=== PATIENT | female | born 1925 | race Caucasian/White ===

== ENCOUNTER 2016-06-04 18:14 | Outpatient (RCR) | payer MEDICARE ==
[2016-06-04 16:09] LABS: MEAN CORPUSCULAR VOLUME 80 FL (80-100); MEAN PLATELET VOLUME 9.2 FL (6.0-9.5); WHITE BLOOD COUNT 9.73 10^3uL (4.0-11.0)
[2016-06-04 16:15] LABS: ALBUMIN 3.4 g/dL (3.4-5.0); ANION GAP 17.1 MEQ/L (3-15); CALCULATED IONIZED CALCIUM 3.9 mg/dL (3.8-4.6); TOTAL PROTEIN 6.9 g/dL (6.4-8.5)
[2016-06-04 16:57] LABS: BAND NEUTROPHILS % 3 % (0-6); EOSINOPHILS % 0 % (0-4); LYMPHOCYTES # 0.8 #; MEAN CORPUSCULAR HEMOGLOBIN 22.4 PG (26.0-34.0); MEAN CORPUSCULAR HGB CONC 28.1 g/dL (31.0-37.0); MONOCYTES # 0.2 #; MONOCYTES % 2 % (3-11); SEGMENTED NEUTROPHILS % 87 % (51-67); TOTAL CELLS COUNTED 100
[2016-06-04 16:58] LABS: ANISOCYTOSIS MODERATE; HYPOCHROMASIA MARKED; MICROCYTOSIS MODERATE; POIKILOCYTOSIS SLIGHT; RBC MORPH SEE REFERENCE (NORMAL)
[2016-06-04 16:59] LABS: PLATELET COUNT 650 10^3uL (150-450)
[~2016-06-04 18:14] MED LIST: AMLO10TA82 PO; ASCO500T5 PO; ASPI-586 PO; ASPI325T4 PO; ATOR20TA PO; ATOR80TA PO; CHOL10002 PO; CITA10TA4 PO; DIGO250T6 PO; DONE5TAB4 PO; FERR325C PO; FOSI10TA3 PO; FSNP20T PO; GLIM4TAB PO; GLMP4T PO; LSNP10T PO; METF500T4 PO; WARF4TAB PO; WRF2T PO
[2016-06-05] VITALS (15 sets, daily range): BP systolic 115–135; BP diastolic 49–78
[2016-06-05] MEDS ORDERED: SODIUM CHLORIDE 250 ML IV PRN (10:45)
[2016-06-05] MEDS ORDERED: NS FLUSH 3 ML PRN IV (10:45)
[2016-06-05] MEDS ORDERED: NS FLUSH 10 ML PRN IV (10:45)
[2016-06-13] MEDS ORDERED: LIDOCAINE 1% (XYLOCAINE) 20 ML VIAL ONE (10:54)
== END 2016-09-02 | disposition home or self-care (01) ==
LOC: EUOP 18:14
PROVIDERS: ATTEND Family Medicine
DX: D50.8 Other iron deficiency anemias (principal); R79.89 Other specified abnormal findings of blood chemistry; E11.65 Type 2 diabetes mellitus with hyperglycemia; E03.5 Myxedema coma
CPT/HCPCS: 36415; 36430; 80053; 83036; 84436; 84443; 85025; 86850; 86870; 86900; 86901; 86920; 86922; J7050; P9040; 86921

== ENCOUNTER → 2016-07-31 | Outpatient (REF) | payer MEDICARE ==
[2016-07-31 11:21] LABS: MEAN PLATELET VOLUME 9.2 FL (6.0-9.5); PLATELET COUNT 547 10^3uL (150-450)
[2016-07-31 11:28] LABS: ANION GAP 14.6 MEQ/L (3-15)
[2016-07-31 11:30] LABS: MEAN CORPUSCULAR HEMOGLOBIN 22.8 PG (26.0-34.0); MEAN CORPUSCULAR HGB CONC 29.4 g/dL (31.0-37.0); MEAN CORPUSCULAR VOLUME 78 FL (80-100)
[2016-07-31 11:33] LABS: BAND NEUTROPHILS % 1 % (0-6); EOSINOPHILS % 1 % (0-4); LYMPHOCYTES # 0.4 #; MONOCYTES # 0.4 #; MONOCYTES % 4 % (3-11); SEGMENTED NEUTROPHILS % 90 % (51-67); TOTAL CELLS COUNTED 100
[2016-07-31 11:34] LABS: HYPOCHROMASIA SLIGHT; MICROCYTOSIS SLIGHT; RBC MORPH SEE REFERENCE (NORMAL)
== END ==
LOC: LAB 11:02
PROVIDERS: ATTEND Family Medicine
DX: D50.8 Other iron deficiency anemias (principal); R79.89 Other specified abnormal findings of blood chemistry
CPT/HCPCS: 80048; 85025

== ENCOUNTER 2016-08-01 11:27 | Outpatient (RCR) | payer MEDICARE ==
[~2016-08-01] VITALS: Ht 167.6 cm; Wt 61.4 kg
[2016-08-01] MEDS ORDERED: NS 250 ML (IVPB) BAG IV SCH (12:20)
[2016-08-01] MEDS ORDERED: SODIUM CHLORIDE FLUSH 10 ML SYR IV PRN (12:20)
[2016-08-01] MEDS ORDERED: LMX 4 KIT (LIDOCAINE 4% 5 GM TUBE/TRANSPARENT DRESSING) TOP PRN (12:20)
[2016-08-01] MEDS ORDERED: SODIUM CHLORIDE FLUSH 3 ML SYR IV PRN (12:20)
[2016-08-02] VITALS (14 sets, daily range): BP systolic 95–122; BP diastolic 47–67
[2016-08-02] MEDS ORDERED: NS 250 ML (IVPB) BAG IV SCH (10:30)
[2016-08-02] MEDS ORDERED: SODIUM CHLORIDE 250 ML ONE (10:32)
[2016-08-02] MEDS ORDERED: LMX 4 KIT (LIDOCAINE 4% 5 GM TUBE/TRANSPARENT DRESSING) TOP PRN (10:40)
[2016-08-02] MEDS ORDERED: SODIUM CHLORIDE FLUSH 10 ML SYR IV PRN (10:40)
[2016-08-02] MEDS ORDERED: SODIUM CHLORIDE FLUSH 3 ML SYR IV PRN (10:40)
--- NOTE | 2016-08-02 10:57 | NUR ---
Pt. arrives for transfusion at 1015 via personal WC, accompanied by daughter. Pt. assisted to recliner. 22g IV started to RFA x1 attempt. 1st unit PRBC initiated at 1047.
--- NOTE | 2016-08-02 11:04 | NUR ---
Pt. tolerating transfusion well. Rate increased to 150ml/hr.
--- NOTE | 2016-08-02 13:05 | NUR ---
1st unit PRBC completed at 1248. Pt. tolerated well, without s/s of reaction. 2nd unit started at 1302.
--- NOTE | 2016-08-02 13:24 | NUR ---
Pt. tolerating 2nd unit without s/s of reaction. VSS. Rate increased to 150ml/hr. Pt. assisted to bed to nap per her request.
--- NOTE | 2016-08-02 15:17 | NUR ---
Pt. tolerated 2nd unit well, without s/s of reaction. VSS.
--- NOTE | 2016-08-02 15:31 | NUR ---
Pt. dismissed to home via personal WC with all belongings. Accompanied off unit by daughter and .
== END 2016-08-02 15:31 | disposition home or self-care (01) ==
LOC: EUOP 11:27 → MED/SURG 08-02 10:10 → EUOP 08-02 15:31
PROVIDERS: ATTEND Family Medicine
DX: D50.8 Other iron deficiency anemias (principal)
CPT/HCPCS: 36415; 36430; 85014; 85018; 86850; 86870; 86900; 86901; 86920; 86922; J7050; P9040; 86921

== ENCOUNTER → 2016-08-13 | Outpatient (REF) | payer MEDICARE ==
[2016-08-13 09:55] LABS: WHITE BLOOD COUNT 11.64 10^3uL (4.0-11.0)
[2016-08-13 09:58] LABS: MEAN CORPUSCULAR HEMOGLOBIN 23.2 PG (26.0-34.0); MEAN CORPUSCULAR HGB CONC 29.3 g/dL (31.0-37.0)
== END ==
LOC: LAB 09:16
PROVIDERS: ATTEND Family Medicine
DX: K92.1 Melena (principal)
CPT/HCPCS: 85027

== ENCOUNTER → 2016-08-21 | Outpatient (REF) | payer MEDICARE ==
[2016-08-21 16:02] LABS: BASOPHILS % (AUTO) 0 % (0-2); EOSINOPHILS % (AUTO) 0 % (0-4); LYMPHOCYTES # (AUTO) 0.4 X10^3; MONOCYTES # (AUTO) 0.4 X10^3; MONOCYTES % (AUTO) 2 % (3-11); NEUTROPHILS # (AUTO) 17.8 X10^3; NEUTROPHILS % (AUTO) 96 % (51-67); PLATELET COUNT 640 10^3uL (150-450); WHITE BLOOD COUNT 18.59 10^3uL (4.0-11.0)
[2016-08-21 16:10] LABS: MEAN CORPUSCULAR HEMOGLOBIN 22.7 PG (26.0-34.0); MEAN CORPUSCULAR HGB CONC 29.2 g/dL (31.0-37.0); MEAN CORPUSCULAR VOLUME 78 FL (80-100)
[2016-08-21 16:25] LABS: BAND NEUTROPHILS % 5 % (0-6); EOSINOPHILS % 0 % (0-4); LYMPHOCYTES # 0.4 #; MONOCYTES # 0.2 #; MONOCYTES % 1 % (3-11); POLYCHROMASIA SLIGHT; RBC MORPH SEE REFERENCE (NORMAL); SEGMENTED NEUTROPHILS % 92 % (51-67); TOTAL CELLS COUNTED 100
[2016-08-21 16:26] LABS: HYPOCHROMASIA SLIGHT; MICROCYTOSIS SLIGHT
[2016-08-21 16:48] LABS: ALBUMIN 2.9 g/dL (3.4-5.0); ANION GAP 17.7 MEQ/L (3-15); CALCULATED IONIZED CALCIUM 4.4 mg/dL (3.8-4.6); TOTAL PROTEIN 5.9 g/dL (6.4-8.5)
== END ==
LOC: LAB 15:50
PROVIDERS: ATTEND Family Medicine
DX: D50.8 Other iron deficiency anemias (principal); I48.1 Persistent atrial fibrillation; R79.89 Other specified abnormal findings of blood chemistry
CPT/HCPCS: 80053; 80162; 85025